=== PATIENT | male | born 1965 | race Caucasian/White ===

== ENCOUNTER 2019-11-29 10:04 | Emergency (ER) | payer OTHER, SELFPAY ==
[2019-11-29 10:12] VITALS: BP 149/74; PULSE 89; RESP 14; TEMP 36.3; O2SAT 98; BMI 33.1
--- NOTE | 2019-11-29 10:16 | DI.RAD.S_ITS ---
PROCEDURE: XR ANKLE RT MIN 3V INDICATIONS: rolled ankle TECHNIQUE: 3 views of the ankle were acquired. COMPARISON: None. FINDINGS: Bones: 3 mm osseous fragment is seen projecting adjacent to the to the lateral malleolus and lateral aspect of the talus. The exact donor site is unclear Tibiotalar degenerative spurring. Posterior calcaneal spurring. Diffuse hindfoot degenerative sclerosis and spurring Soft tissues: Lateral soft tissue swelling IMPRESSION: Suspect cortical fracture fragment projecting at the tip of the lateral malleolus although the exact donor site is unclear. Overlying lateral soft tissue swelling Chronic degenerative changes as above. Dictated by: Mike Cheney M.D. on 11/29/2019 at 10:37 Approved by: Mike Cheney M.D. on 11/29/2019 at 10:40
--- NOTE | 2019-11-29 11:43 | ED_ITS ---
HPI - Extremity Injury (Lower) <GAB Loo - Last Filed: 11/29/19 14:43> General Chief Complaint: Extremity Injury, Lower Stated Complaint: right ankle injury x1day Time Seen by Provider: 11/29/19 11:02 Source: patient Mode of arrival: Wheelchair Limitations: no limitations History of Present Illness HPI Narrative: 54-year-old male presents to the emergency department for right l ateral malleolus pain. He states he was hiking yesterday and rolled his right ankle inward. Patient reported significant pain, swelling, and hearing a pop. He was able to put weight on his ankle afterwards but reports the pain and swelling have been increasing over the past 24 hours. Patient denies any previous injury to the ankle other than a sprain approximately 10-20 years ago. Patient denies any other injuries such as knee pain, foot pain, head injury, or wrist injury. Patient denies any major medical issues, denies taking blood thinners. Related Data Allergies Allergy/AdvReac Type Severity Reaction Status Date / Time No Known Drug Allergies Allergy Verified 11/29/19 10:16 Review of Systems <GAB Loo - Last Filed: 11/29/19 14:43> Review of Systems Narrative: REVIEW OF SYSTEMS: GENERAL: Denies fever or chills. HENT: No head trauma. CARDIOVASCULAR: No chest pain. RESPIRATORY: No shortness of breath or cough. GASTROINTESTINAL: No nausea vomiting. GENITOURINARY: No flank pain. MUSCULOSKELETAL: Complains of right ankle pain, see HPI. INTEGUMENTARY: No rash, lesions, or pruritus. NEURO: No numbness, tingling. PSYCH: No behavior or mood changes. Patient History <GAB Loo - Last Filed: 11/29/19 14:43> Medical History No significant medical problems (Acute) Social History Smoking Status: Unknown if ever smoked Smoking Status: Unknown if ever smoked alcohol intake frequency: a few times a week Substance Use Type: does not use Exam <GAB Loo - Last Filed: 11/29/19 14:43> Initial Vital Signs Initial Vital Signs: Vital Signs Temperature 97.4 F L 11/29/19 10:12 Pulse Rate 89 11/29/19 10:12 Respiratory Rate 14 11/29/19 10:12 Blood Pressure 149/74 H 11/29/19 10:12 Pulse Oximetry 98 11/29/19 10:12 PHYSICAL EXAMINATION: GENERAL: Well groomed, alert, and cooperative. Answers questions promptly and appropriately. Vital signs noted. HENT: Normocephalic, atraumatic. EYES: Symmetrical, sclera white, no periorbital swelling. CARDIOVASCULAR: Regular rate. RESPIRATORY: Normal respiratory rate, trachea midline, airway patent. No stridor, nasal flaring or accessory muscle use. MUSCULOSKELETAL: Swelling and significant tenderness noted to posterior aspect of right lateral malleolus. Minor ecchymosis. No tenderness to 5th metatarsal or foot. No medial tenderness to malleolus. Normal gait and coordination. Equal tone and mass bilaterally. EXTREMITIES: CMS intact. No pedal edema. SKIN: Warm, dry, soft, appropriate color for ethnicity. No lesions, rashes, or wounds. NEURO: Alert and Oriented X 3. No sensory deficits. PSYCH: Appropriate affect and mood. <Valeria Márquez DO - Last Filed: 11/30/19 06:51> Initial Vital Signs Initial Vital Signs: Vital Signs Temperature 97.4 F L 11/29/19 10:12 Pulse Rate 89 11/29/19 10:12 Respiratory Rate 14 11/29/19 10:12 Blood Pressure 149/74 H 11/29/19 10:12 Pulse Oximetry 98 11/29/19 10:12 Course <GAB Loo - Last Filed: 11/29/19 14:43> Course Course Narrative: Patient was given Toradol in the emergency department to help with pain. Orders Ordered: Discontinued Medications Ketorolac Tromethamine (Toradol) 30 mg IM NOW ONE Stop: 11/29/19 11:24 Last Admin: 11/29/19 12:04 Dose: 30 mg Documented by: EVANGELISTA Vital Signs Vital signs: Vital Signs - 8 hr 11/29/19 10:12 11/29/19 12:50 Temperature 97.4 F L Pulse Rate 89 64 Respiratory Rate 14 18 Blood Pressure 149/74 H 112/80 Pulse Oximetry 98 97 <Valeria Márquez DO - Last Filed: 11/30/19 06:51> Orders Ordered: Discontinued Medications Ketorolac Tromethamine (Toradol) 30 mg IM NOW ONE Stop: 11/29/19 11:24 Last Admin: 11/29/19 12:04 Dose: 30 mg Documented by: EVANGELISTA Vital Signs Vital signs: Vital Signs - 8 hr 11/29/19 10:12 11/29/19 12:50 Temperature 97.4 F L Pulse Rate 89 64 Respiratory Rate 14 18 Blood Pressure 149/74 H 112/80 Pulse Oximetry 98 97 MDM - Extremity Injury (Lower) <GAB Loo - Last Filed: 11/29/19 14:43> Medical Records Attestation: I reviewed the patient's medical records. Lab Data Attestation: I reviewed the patient's lab results. Imaging Data Extremity x-ray #1: Radiologist's Impression: [address] [address] XRay Report Signed Patient: Carlos Porter [facility]#: [id number] : 1965Acct:[id number] Age/Sex: 54 / MDate of Service: 11/29/19 Loc: ED Accession Number: [id number] Procedure: XR ankle RT min 3V Ordering Provider: Valeria Márquez D.O. PROCEDURE: XR ANKLE RT MIN 3V INDICATIONS: rolled ankle TECHNIQUE: 3 views of the ankle were acquired. COMPARISON: None. FINDINGS: Bones: 3 mm osseous fragment is seen projecting adjacent to the to the lateral malleolus and lateral aspect of the talus. The exact donor site is unclear Tibiotalar degenerative spurring. Posterior calcaneal spurring. Diffuse hindfoot degenerative sclerosis and spurring Soft tissues: Lateral soft tissue swelling IMPRESSION: Suspect cortical fracture fragment projecting at the tip of the lateral malleolus although the exact donor site is unclear. Overlying lateral soft tissue swelling Chronic degenerative changes as above. Dictated by: Mike Cheney M.D. on 11/29/2019 at 10:37 Approved by: Mike Cheney M.D. on 11/29/2019 at 10:40 [facility] Narrative Medical decision making narrative: 54-year-old male presents emergency department for right lateral malleolar pain twisting his ankle while hiking yesterday. X-ray shows suspicious bone fragment from lateral malleolus, patient is tender in this area. Concern for possible fracture with ankle sprain. No pain with palpation of foot or other injuries noted such as knee pain or ecchymosis. Patient was placed in a boot, inform to be nonweightbearing until follow-up in the next 1-2 weeks. Patient was given crutches. Toradol was given for pain. Return precautions given for new or worsening symptoms. Patient agreed to plan of care verbalized understanding. Discharge Plan Departure Patient Disposition: Home Clinical Impression: Fracture of lateral malleolus Qualifiers: Encounter type: initial encounter Fracture type: closed Fracture alignment: nondisplaced Laterality: right Qualified Code(s): S82.64XA - Nondisplaced fracture of lateral malleolus of right fibula, initial encounter for closed fracture Discharge Date/Time: 11/29/19 12:51 Instructions: DI for Ankle Fracture Activity Restrictions/Additional Instructions: Thank you for entrusting me with your care today. As discussed, there is a possible fracture noted on your x-ray. We have given you a boot, please leave this in place as much as possible, you may remove it briefly to take a shower. Do not put any weight on your foot until you are evaluated by an orthopedic. I have referred you to an orthopedic below, please call her office to schedule an appointment today within the next 1-2 weeks. Return to the emergency department for any new or worsening symptoms such as severe pain, high fevers, chest pain, shortness of breath, or any other concerns. Referrals: Krystal Andrade PA-C [[employer]] - (Suspect cortical fracture fragment projecting from tip of lateral malleolus.) <Valeria Márquez DO - Last Filed: 11/30/19 06:51> Sign Out Provider Sign Out Attestation: I was immediately available in the department for consultation. Documentation has been reviewed. I agree with assessment and plan.
[2019-11-29] MEDS: KETOROLAC 60 MG/2 ML VIAL 30 MG IM (12:04)
[2019-11-29 12:50] VITALS: BP 112/80; PULSE 64; RESP 18; O2SAT 97
== END 2019-11-29 12:51 | disposition home or self-care (01) ==
PROVIDERS: Emergency Provider Nurse Practitioner
DX: S82.64XA Nondisplaced fracture of lateral malleolus of right fibula, initial encounter for closed fracture (principal)
CPT/HCPCS: 29580; 73610; 96372; 99283; J1885

== ENCOUNTER → 2023-12-23 13:35 | Outpatient (CLI) | payer BC, SELFPAY ==
[2023-12-23 14:41] LABS: Add Manual Diff / Slide Review NO; Basophils Absolute Auto 100 /uL (0-100); Basophils Percent Auto 0.4 % (0-2); Eosinophils Absolute Auto 200 /uL (0-450); Eosinophils Percent Auto 1.6 % (2-4); Hematocrit 27.1 % (41-53); Hemoglobin 8.9 g/dL (13.5-17.5); Lymphocytes Absolute Auto 700 /uL (1100-4500); Lymphocytes Percent Auto 4.6 % (25-40); Mean Corpuscular HGB Conc 32.8 % (30-36); Mean Corpuscular Hemoglobin 28.1 PG (26-34); Mean Corpuscular Volume 85.7 fL (80-100); Monocytes Absolute Auto 300 /uL (0-900); Monocytes Percent Auto 2.1 % (3-14); Neutrophils Absolute Auto 13300 /uL (1500-7000); Neutrophils Percent Auto 91.3 % (50-75); Platelet Count 378 X10^3/uL (150-400); Red Blood Cell Count 3.16 X10^6/uL (4.5-5.9); Red Cell Distribution Width 13.6 % (11.6-14.8); White Blood Cell Count 14.5 X10^3/uL (4.5-11.0)
[2023-12-23 14:44] LABS: Appearance Urine UA CLEAR; Bilirubin Urine UA NEGATIVE (NEGATIVE); Color Urine UA YELLOW; Glucose Urine UA TRACE g/dL (Negative); Ketones Urine UA NEGATIVE (NEGATIVE); Leukocyte Esterase Urine UA NEGATIVE (NEGATIVE); Nitrite Urine UA NEGATIVE (Negative); Occult Blood Urine UA 3+ (Negative); Protein Urine UA 3+ (Negative); Specific Gravity Urine UA 1.015 (1.000-1.035); Urobilinogen Urine UA 0.2 E.U./dL (0.2)
[2023-12-23 14:59] LABS: Bacteria Urine None Seen; Culture Indicated Urine Cult Not Indicated; RBC Urine 10-30/HPF (0-5/HPF); Squamous Epithelial Cell Urine None Seen (0-5/HPF); Urine Volume 10mL (spun); WBC Urine 1-5/HPF (0-5/HPF)
[2023-12-23 15:08] LABS: Alanine Aminotransferase 13 IU/L (<50); Albumin 4.4 g/dL (3.5-5.0); Albumin Globulin Ratio 1.3 (1.0-2.8); Alkaline Phosphatase 62 U/L (38-126); Aspartate Aminotransferase 12 IU/L (17-59); Bilirubin Total 0.4 mg/dL (0.2-1.3); Blood Urea Nitrogen 83 mg/dL (9-20); C-Reactive Protein Quant 3.9 mg/dL (<1.0); Calcium 8.7 mg/dL (8.4-10.2); Carbon Dioxide 16 mmol/L (22-32); Chloride 109 mmol/L (98-107); Globulin 3.5 g/dL (1.7-4.1); Glucose 135 mg/dL (70-100); HEMOLYSIS < 15 (0-50); Sodium 138 mmol/L (137-145); Total Protein 7.9 g/dL (6.3-8.2)
[2023-12-23 15:13] LABS: Erythrocyte Sedimentation Rate > 140 MM/HR (0-15)
[2023-12-23 15:16] LABS: BUN Creatinine Ratio 9.8 (6-22); Estimated Glomerular Filt Rate 7 mL/min (>60)
[2023-12-23 15:17] LABS: Potassium 6.2 mmol/L (3.4-5.1)
== END ==
PROVIDERS: Referring Provider Dermatology; Visit Provider Dermatology
DX: R21 Rash and other nonspecific skin eruption (principal); L57.8 Other skin changes due to chronic exposure to nonionizing radiation; L57.3 Poikiloderma of Civatte; X32.XXXA Exposure to sunlight, initial encounter
CPT/HCPCS: 36415; 80053; 81001; 85025; 85651; 86140

== ENCOUNTER 2023-12-23 17:00 | Emergency (ER) | payer BC, SELFPAY ==
[2023-12-23] VITALS (34 sets, daily range): BP systolic 142–172; BP diastolic 68–93; PULSE 75–125; RESP 16–27; TEMP 36.6; O2SAT 94–99; BMI 33.1
--- NOTE | 2023-12-23 17:14 | EKG_ITS ---
[address] [address] Test Date: 2023-12-23 Pat Name: Carlos Porter Department: [facility] Room: Gender: Male [employer] Spr[employer]: MARIAM : 1965 Requested By: Order Number: [id number] Reading MD: Jamari Reece Measurements Intervals [place] Rate: 74 P: -9 NE: 162 QRS: 26 QRSD: 92 T: 42 QT: 360 QTc: 399 Interpretive Statements Normal sinus rhythm with sinus arrhythmia Electronically Signed On 12-27-2023 8:40:11 PDT by Jamari Reece
[2023-12-23 17:33] LABS: Add Manual Diff / Slide Review NO; Basophils Absolute Auto 100 /uL (0-100); Basophils Percent Auto 0.5 % (0-2); Eosinophils Absolute Auto 0 /uL (0-450); Eosinophils Percent Auto 0.1 % (2-4); Hematocrit 26.9 % (41-53); Hemoglobin 8.8 g/dL (13.5-17.5); Lymphocytes Absolute Auto 500 /uL (1100-4500); Lymphocytes Percent Auto 3.1 % (25-40); Mean Corpuscular HGB Conc 32.7 % (30-36); Mean Corpuscular Hemoglobin 27.9 PG (26-34); Mean Corpuscular Volume 85.2 fL (80-100); Monocytes Absolute Auto 100 /uL (0-900); Monocytes Percent Auto 0.8 % (3-14); Neutrophils Absolute Auto 14800 /uL (1500-7000); Neutrophils Percent Auto 95.5 % (50-75); Platelet Count 375 X10^3/uL (150-400); Red Blood Cell Count 3.16 X10^6/uL (4.5-5.9); Red Cell Distribution Width 13.5 % (11.6-14.8); White Blood Cell Count 15.5 X10^3/uL (4.5-11.0)
[2023-12-23 17:41] LABS: Base Excess VBG -9.2 mmol/L (0-4); HCO3 VBG 16 mmol/L (24-28); Oxygen Saturation VBG 68 % (70-75); PCO2 VBG 33.2 mmHg (45-50); PO2 VBG 39 mmHg (35-45); Total CO2 VBG 16 mmol/L (24-29)
[2023-12-23 17:42] LABS: Fractionated Inspired Oxygen 21
[2023-12-23 17:42] LABS: Lactate (Lactic Acid) 0.7 mmol/L (0.7-2.1)
[2023-12-23 17:43] LABS: Alanine Aminotransferase 12 IU/L (<50); Albumin 4.5 g/dL (3.5-5.0); Albumin Globulin Ratio 1.3 (1.0-2.8); Alkaline Phosphatase 56 U/L (38-126); Aspartate Aminotransferase 13 IU/L (17-59); Bilirubin Total 0.4 mg/dL (0.2-1.3); Blood Urea Nitrogen 84 mg/dL (9-20); Calcium 8.6 mg/dL (8.4-10.2); Carbon Dioxide 14 mmol/L (22-32); Chloride 108 mmol/L (98-107); Estimated Glomerular Filt Rate 7 mL/min (>60); Globulin 3.6 g/dL (1.7-4.1); Glucose 158 mg/dL (70-100); HEMOLYSIS < 15 (0-50); Magnesium 2.2 mg/dL (1.6-2.3); Phosphorous 5.6 mg/dL (2.5-4.5); Sodium 135 mmol/L (137-145); Total Protein 8.1 g/dL (6.3-8.2)
[2023-12-23 17:45] LABS: Potassium 7.7 mmol/L (3.4-5.1)
[2023-12-23] MEDS: SODIUM POLYSTYRENE SULFON/SORB 15 GM/60 ML CUP 30 GM PO (17:58)
[2023-12-23] MEDS: CALCIUM CHLORIDE 1,000 MG/10 ML SYRINGE 1000 MG IV (17:58)
[2023-12-23] MEDS: INSULIN REGULAR 100 UNIT/ML 3 ML VIAL IV ×2 (17:59→21:46)
--- NOTE | 2023-12-23 18:02 | ED_ITS ---
HPI - Recheck/Abnormal Lab/Rx <Jenny Ng MD - Last Filed: 12/31/23 00:04> General Chief Complaint: Recheck/Abnormal Lab/Rx Stated Complaint: abnormal labs, sent by [facility] Time Seen by Provider: 12/23/23 17:14 Source: patient Mode of arrival: Ambulatory History of Present Illness HPI narrative: 58-year-old male with history of IgA nephropathy, rheumatoid arthritis on immunomodulators presents for abnormal lab results. Patient normally lives in [facility], however he and his have a summer home in [place]. Patient was seeing the laundry tub maker for a rash that he had. The laundry tub maker ordered laboratory work. He received a call this afternoon stating that he had abnormal labs and he needed to go to the emergency department. Patient sees a strategy planning consultant in [place], however he doess not know his baseline creatinine. He states that his strategy planning consultant last told him in July of this year that they did not need to consider dialysis yet. Related Data Previous Rx's Medication Instructions Recorded prednisone 50 mg tablet 50 mg PO DAILY #5 tabs 12/06/23 Allergies Allergy/AdvReac Type Severity Reaction Status Date / Time No Known Drug Allergies Allergy Verified 12/23/23 17:07 Review of Systems <Ashu Brito DO - Last Filed: 12/24/23 02:15> Review of Systems ROS Unobtainable: All systems reviewed & are unremarkable except as noted in HPI and below Patient History <Jenny Ng MD - Last Filed: 12/31/23 00:04> Medical History (Updated 12/24/23 @ 02:09 by Ashu Brito DO) Rheumatoid arthritis IgA nephropathy Social History Smoking Status: Unknown if ever smoked Smoking Status: Unknown if ever smoked alcohol intake frequency: a few times a week Substance Use Type: does not use Exam <Jenny Ng MD - Last Filed: 12/31/23 00:04> Initial Vital Signs Initial Vital Signs: Vital Signs Temperature 98 F 12/23/23 17:04 Pulse Rate 88 12/23/23 17:04 Respiratory Rate 18 12/23/23 17:04 Blood Pressure 149/77 H 12/23/23 17:04 Pulse Oximetry 98 12/23/23 17:04 Oxygen Delivery Method Room Air 12/23/23 17:04 Const: Awake, alert, no acute distress, nontoxic appearing Cardiac: regular rate, regular rhythm RESP: unlabored, clear bilaterally, no wheezing GI: Soft, nontender, nondistended, no rebound, no guarding MSK: Atraumatic, full range of motion, pulses equal Skin: Warm, Dry, intact, no rashes Neuro: AO x3, CN II-XII grossly intact, moves all extremities <Ashu Brito DO - Last Filed: 12/24/23 02:15> Initial Vital Signs Initial Vital Signs: Vital Signs Temperature 98 F 12/23/23 17:04 Pulse Rate 88 12/23/23 17:04 Respiratory Rate 18 12/23/23 17:04 Blood Pressure 149/77 H 12/23/23 17:04 Pulse Oximetry 98 12/23/23 17:04 Oxygen Delivery Method Room Air 12/23/23 17:04 Course <Jenny Ng MD - Last Filed: 12/31/23 00:04> Orders Ordered: Discontinued Medications Albuterol (Albuterol 2.5 Mg/3 Ml Neb (Adult)) 2.5 mg INH [id number] PRN PRN Reason: Shortness Of Breath Last Admin: 12/23/23 18:06 Dose: 2.5 mg Documented By: SAT Albuterol (Albuterol 2.5 Mg/3 Ml Neb (Adult)) 5 mg INH NOW ONE Stop: 12/23/23 21:34 Last Admin: 12/23/23 21:50 Dose: 5 mg Documented By: MR Albuterol/Ipratropium (Albuterol/Ipratropium 3 Ml Ampul) 9 ml INH NOW ONE Stop: 12/23/23 17:46 Last Admin: 12/23/23 18:03 Dose: Not Given Documented By: SAT Calcium Chloride (Calcium Chloride 1,000 Mg/10 Ml Syringe) 1,000 mg IV NOW ONE Stop: 12/23/23 17:46 Last Admin: 12/23/23 17:58 Dose: 1,000 mg Documented By: ANISH Sodium Bicarbonate 150 meq/ (Sterile Water) 1,150 mls @ 150 mls/hr IV CONT OFE Last Admin: 12/23/23 21:58 Dose: Not Given Documented By: ANISH Sodium Bicarbonate 150 meq/ (Dextrose) 1,150 mls @ 150 mls/hr IV CONT OFE Last Infusion: 12/24/23 03:09 Dose: Infused Documented By: Admin: 12/23/23 19:33 Dose: 150 mls/hr Documented By: ANISH Insulin Human Regular (Insulin Regular 100 Unit/Ml 3 Ml Vial) 5 unit IV NOW ONE Stop: 12/23/23 17:46 Last Admin: 12/23/23 17:59 Dose: 5 unit Documented By: ANISH Co-signed By: JUSTIN Insulin Human Regular (Insulin Regular 100 Unit/Ml 3 Ml Vial) 5 unit IV NOW ONE Stop: 12/23/23 21:34 Last Admin: 12/23/23 21:46 Dose: 5 unit Documented By: ANISH Co-signed By: BELLA Sodium Polystyrene Sulfonate (Sodium Polystyrene Sulfon/Sorb 15 Gm/60 Ml Cup) 30 gm PO NOW ONE Stop: 12/23/23 17:46 Last Admin: 12/23/23 17:58 Dose: 30 gm Documented By: ANISH Vital Signs Vital signs: Vital Signs - 8 hr 12/23/23 18:15 12/23/23 18:15 12/23/23 18:22 Pulse Rate 84 85 Respiratory Rate 24 16 Blood Pressure 163/93 H Pulse Oximetry 99 98 Oxygen Delivery Method Room Air 12/23/23 18:30 12/23/23 18:30 12/23/23 18:45 Pulse Rate 93 H Respiratory Rate 25 H Blood Pressure 168/83 H 172/85 H Pulse Oximetry 98 Oxygen Delivery Method 12/23/23 18:45 12/23/23 19:00 12/23/23 19:00 Pulse Rate 104 H 110 H Respiratory Rate 21 27 H Blood Pressure 167/90 H Pulse Oximetry 97 96 Oxygen Delivery Method 12/23/23 19:15 12/23/23 19:15 12/23/23 19:33 Pulse Rate 113 H 120 H Respiratory Rate 26 H Blood Pressure 168/90 H Pulse Oximetry 97 99 Oxygen Delivery Method 12/23/23 19:34 12/23/23 19:34 12/23/23 19:45 Pulse Rate 116 H Respiratory Rate 19 Blood Pressure 167/79 H 162/72 H Pulse Oximetry 99 Oxygen Delivery Method 12/23/23 19:45 12/23/23 20:00 12/23/23 20:00 Pulse Rate 115 H 114 H Respiratory Rate 25 H 23 Blood Pressure 165/79 H Pulse Oximetry 94 95 Oxygen Delivery Method 12/23/23 20:15 12/23/23 20:15 12/23/23 20:30 Pulse Rate 116 H 113 H Respiratory Rate 21 18 Blood Pressure 161/80 H Pulse Oximetry 95 96 Oxygen Delivery Method 12/23/23 20:30 12/23/23 20:45 12/23/23 20:45 Pulse Rate 113 H Respiratory Rate 19 Blood Pressure 154/81 H 150/88 H Pulse Oximetry 95 Oxygen Delivery Method 12/23/23 21:00 12/23/23 21:00 12/23/23 21:10 Pulse Rate 113 H 112 H Respiratory Rate 18 24 Blood Pressure 161/88 H 161/88 H Pulse Oximetry 96 96 Oxygen Delivery Method 12/23/23 21:15 12/23/23 21:15 12/23/23 21:30 Pulse Rate 110 H 111 H Respiratory Rate 20 17 Blood Pressure 148/81 H Pulse Oximetry 96 95 Oxygen Delivery Method 12/23/23 21:30 12/23/23 21:45 12/23/23 21:45 Pulse Rate 109 H Respiratory Rate 20 Blood Pressure 157/83 H 142/84 H Pulse Oximetry 95 Oxygen Delivery Method 12/23/23 22:00 12/23/23 22:00 12/23/23 22:15 Pulse Rate 113 H 122 H Respiratory Rate 22 20 Blood Pressure 148/84 H Pulse Oximetry 99 96 Oxygen Delivery Method 12/23/23 22:15 12/23/23 22:22 12/23/23 22:22 Pulse Rate 123 H Respiratory Rate 18 Blood Pressure 152/72 H 148/71 H Pulse Oximetry 98 Oxygen Delivery Method 12/23/23 22:30 12/23/23 22:30 12/23/23 22:45 Pulse Rate 125 H 124 H Respiratory Rate 22 22 Blood Pressure 149/68 H Pulse Oximetry 96 94 Oxygen Delivery Method 12/23/23 22:45 12/23/23 23:00 12/23/23 23:00 Pulse Rate 121 H Respiratory Rate 20 Blood Pressure 154/75 H 161/77 H Pulse Oximetry 94 Oxygen Delivery Method 12/23/23 23:15 12/23/23 23:15 12/23/23 23:30 Pulse Rate 122 H 119 H Respiratory Rate 22 22 Blood Pressure 145/68 H Pulse Oximetry 96 97 Oxygen Delivery Method Room Air 12/23/23 23:30 12/23/23 23:48 12/23/23 23:48 Pulse Rate 121 H Respiratory Rate 27 H Blood Pressure 142/71 H 169/79 H Pulse Oximetry 98 Oxygen Delivery Method 12/24/23 00:00 12/24/23 00:00 12/24/23 00:30 Pulse Rate 114 H 112 H Respiratory Rate 17 18 Blood Pressure 141/59 H Pulse Oximetry 97 97 Oxygen Delivery Method Room Air 12/24/23 00:30 12/24/23 01:00 12/24/23 01:00 Pulse Rate 110 H Respiratory Rate 17 Blood Pressure 126/67 120/66 Pulse Oximetry 96 Oxygen Delivery Method 12/24/23 01:30 12/24/23 01:30 Pulse Rate 113 H Respiratory Rate 24 Blood Pressure 154/74 H Pulse Oximetry 98 Oxygen Delivery Method Room Air <Ashu Brito DO - Last Filed: 12/24/23 02:15> Orders Ordered: Discontinued Medications Albuterol (Albuterol 2.5 Mg/3 Ml Neb (Adult)) 2.5 mg INH [id number] PRN PRN Reason: Shortness Of Breath Last Admin: 12/23/23 18:06 Dose: 2.5 mg Documented By: SAT Albuterol (Albuterol 2.5 Mg/3 Ml Neb (Adult)) 5 mg INH NOW ONE Stop: 12/23/23 21:34 Last Admin: 12/23/23 21:50 Dose: 5 mg Documented By: MR Albuterol/Ipratropium (Albuterol/Ipratropium 3 Ml Ampul) 9 ml INH NOW ONE Stop: 12/23/23 17:46 Last Admin: 12/23/23 18:03 Dose: Not Given Documented By: SAT Calcium Chloride (Calcium Chloride 1,000 Mg/10 Ml Syringe) 1,000 mg IV NOW ONE Stop: 12/23/23 17:46 Last Admin: 12/23/23 17:58 Dose: 1,000 mg Documented By: ANISH Sodium Bicarbonate 150 meq/ (Sterile Water) 1,150 mls @ 150 mls/hr IV CONT OFE Last Admin: 12/23/23 21:58 Dose: Not Given Documented By: ANISH Sodium Bicarbonate 150 meq/ (Dextrose) 1,150 mls @ 150 mls/hr IV CONT OFE Last Infusion: 12/24/23 03:09 Dose: Infused Documented By: Admin: 12/23/23 19:33 Dose: 150 mls/hr Documented By: ANISH Insulin Human Regular (Insulin Regular 100 Unit/Ml 3 Ml Vial) 5 unit IV NOW ONE Stop: 12/23/23 17:46 Last Admin: 12/23/23 17:59 Dose: 5 unit Documented By: ANISH Co-signed By: JUSTIN Insulin Human Regular (Insulin Regular 100 Unit/Ml 3 Ml Vial) 5 unit IV NOW ONE Stop: 12/23/23 21:34 Last Admin: 12/23/23 21:46 Dose: 5 unit Documented By: ANISH Co-signed By: BELLA Sodium Polystyrene Sulfonate (Sodium Polystyrene Sulfon/Sorb 15 Gm/60 Ml Cup) 30 gm PO NOW ONE Stop: 12/23/23 17:46 Last Admin: 12/23/23 17:58 Dose: 30 gm Documented By: ANISH Vital Signs Vital signs: Vital Signs - 8 hr 12/23/23 18:15 12/23/23 18:15 12/23/23 18:22 Pulse Rate 84 85 Respiratory Rate 24 16 Blood Pressure 163/93 H Pulse Oximetry 99 98 Oxygen Delivery Method Room Air 12/23/23 18:30 12/23/23 18:30 12/23/23 18:45 Pulse Rate 93 H Respiratory Rate 25 H Blood Pressure 168/83 H 172/85 H Pulse Oximetry 98 Oxygen Delivery Method 12/23/23 18:45 12/23/23 19:00 12/23/23 19:00 Pulse Rate 104 H 110 H Respiratory Rate 21 27 H Blood Pressure 167/90 H Pulse Oximetry 97 96 Oxygen Delivery Method 12/23/23 19:15 12/23/23 19:15 12/23/23 19:33 Pulse Rate 113 H 120 H Respiratory Rate 26 H Blood Pressure 168/90 H Pulse Oximetry 97 99 Oxygen Delivery Method 12/23/23 19:34 12/23/23 19:34 12/23/23 19:45 Pulse Rate 116 H Respiratory Rate 19 Blood Pressure 167/79 H 162/72 H Pulse Oximetry 99 Oxygen Delivery Method 12/23/23 19:45 12/23/23 20:00 12/23/23 20:00 Pulse Rate 115 H 114 H Respiratory Rate 25 H 23 Blood Pressure 165/79 H Pulse Oximetry 94 95 Oxygen Delivery Method 12/23/23 20:15 12/23/23 20:15 12/23/23 20:30 Pulse Rate 116 H 113 H Respiratory Rate 21 18 Blood Pressure 161/80 H Pulse Oximetry 95 96 Oxygen Delivery Method 12/23/23 20:30 12/23/23 20:45 12/23/23 20:45 Pulse Rate 113 H Respiratory Rate 19 Blood Pressure 154/81 H 150/88 H Pulse Oximetry 95 Oxygen Delivery Method 12/23/23 21:00 12/23/23 21:00 12/23/23 21:10 Pulse Rate 113 H 112 H Respiratory Rate 18 24 Blood Pressure 161/88 H 161/88 H Pulse Oximetry 96 96 Oxygen Delivery Method 12/23/23 21:15 12/23/23 21:15 12/23/23 21:30 Pulse Rate 110 H 111 H Respiratory Rate 20 17 Blood Pressure 148/81 H Pulse Oximetry 96 95 Oxygen Delivery Method 12/23/23 21:30 12/23/23 21:45 12/23/23 21:45 Pulse Rate 109 H Respiratory Rate 20 Blood Pressure 157/83 H 142/84 H Pulse Oximetry 95 Oxygen Delivery Method 12/23/23 22:00 12/23/23 22:00 12/23/23 22:15 Pulse Rate 113 H 122 H Respiratory Rate 22 20 Blood Pressure 148/84 H Pulse Oximetry 99 96 Oxygen Delivery Method 12/23/23 22:15 12/23/23 22:22 12/23/23 22:22 Pulse Rate 123 H Respiratory Rate 18 Blood Pressure 152/72 H 148/71 H Pulse Oximetry 98 Oxygen Delivery Method 12/23/23 22:30 12/23/23 22:30 12/23/23 22:45 Pulse Rate 125 H 124 H Respiratory Rate 22 22 Blood Pressure 149/68 H Pulse Oximetry 96 94 Oxygen Delivery Method 12/23/23 22:45 12/23/23 23:00 12/23/23 23:00 Pulse Rate 121 H Respiratory Rate 20 Blood Pressure 154/75 H 161/77 H Pulse Oximetry 94 Oxygen Delivery Method 12/23/23 23:15 12/23/23 23:15 12/23/23 23:30 Pulse Rate 122 H 119 H Respiratory Rate 22 22 Blood Pressure 145/68 H Pulse Oximetry 96 97 Oxygen Delivery Method Room Air 12/23/23 23:30 12/23/23 23:48 12/23/23 23:48 Pulse Rate 121 H Respiratory Rate 27 H Blood Pressure 142/71 H 169/79 H Pulse Oximetry 98 Oxygen Delivery Method 12/24/23 00:00 12/24/23 00:00 12/24/23 00:30 Pulse Rate 114 H 112 H Respiratory Rate 17 18 Blood Pressure 141/59 H Pulse Oximetry 97 97 Oxygen Delivery Method Room Air 12/24/23 00:30 12/24/23 01:00 12/24/23 01:00 Pulse Rate 110 H Respiratory Rate 17 Blood Pressure 126/67 120/66 Pulse Oximetry 96 Oxygen Delivery Method 12/24/23 01:30 12/24/23 01:30 Pulse Rate 113 H Respiratory Rate 24 Blood Pressure 154/74 H Pulse Oximetry 98 Oxygen Delivery Method Room Air MDM - Recheck/Abnormal Lab/Rx <Jenny Ng MD - Last Filed: 12/31/23 00:04> Differential Diagnosis Differential diagnosis: Likely other (ALLY, acute kidney failure, hyperkalemia) Lab Data 12/23/23 17:20 12/24/23 01:25 Labs: Lab Results 12/23/23 12/23/23 12/23/23 Range/Units 17:20 17:23 19:30 WBC 15.5 H (4.5-11.0) X10^3/uL RBC 3.16 L (4.5-5.9) X10^6/uL Hgb 8.8 L (13.5-17.5) g/dL Hct 26.9 L (41-53) % MCV 85.2 (80-100) fL MCH 27.9 (26-34) PG MCHC 32.7 (30-36) % RDW 13.5 (11.6-14.8) % Plt Count 375 (150-400) X10^3/uL Neut % (Auto) 95.5 H (50-75) % Lymph % (Auto) 3.1 L (25-40) % [place] % (Auto) 0.8 L (3-14) % Eos % (Auto) 0.1 L (2-4) % Baso % (Auto) 0.5 (0-2) % Neut # (Auto) 59435 H (9181-2331) /uL Lymph # (Auto) 500 L (4993-5447) /uL [place] # (Auto) 100 (0-900) /uL Eos # (Auto) 0 (0-450) /uL Baso # (Auto) 100 (0-100) /uL VBG pH 7.30 L (7.33-7.43) VBG pCO2 33.2 L (45-50) mmHg VBG pO2 39 (35-45) mmHg VBG HCO3 16 L (24-28) mmol/L VBG Total CO2 16 L (24-29) mmol/L VBG O2 Saturation 68 L (70-75) % VBG Base Excess -9.2 L (0-4) mmol/L FiO2 21 Sodium 135 L (137-145) mmol/L Potassium 7.7 H* D (3.4-5.1) mmol/L Chloride 108 H (98-107) mmol/L Carbon Dioxide 14 L (22-32) mmol/L BUN 84 H (9-20) mg/dL Creatinine 8.42 H* (0.66-1.25) mg/dL Estimated GFR 7 L (>60) mL/min BUN/Creatinine Ratio 10.0 (6-22) Glucose 158 H (70-100) mg/dL Lactate 0.7 (0.7-2.1) mmol/L Calcium 8.6 (8.4-10.2) mg/dL Phosphorus 5.6 H (2.5-4.5) mg/dL Magnesium 2.2 (1.6-2.3) mg/dL Total Bilirubin 0.4 (0.2-1.3) mg/dL AST 13 L (17-59) IU/L ALT 12 (<50) IU/L Alkaline Phosphatase 56 (38-126) U/L Total Protein 8.1 (6.3-8.2) g/dL Albumin 4.5 (3.5-5.0) g/dL Globulin 3.6 (1.7-4.1) g/dL Albumin/Globulin Ratio 1.3 (1.0-2.8) Urine Color Yellow Urine Appearance Clear Urine pH 5.5 (4.5-8.0) Ur Specific [place] 1.020 (1.000-1.035) Urine Protein 2+ H (Negative) Urine Glucose (UA) Trace H (Negative) g/dL Urine Ketones Negative (NEGATIVE) Urine Occult Blood 3+ H (Negative) Urine Nitrate Negative (Negative) Urine Bilirubin Negative (NEGATIVE) Urine Urobilinogen 0.2 (0.2) E.U./dL Ur Leukocyte Esterase Negative (NEGATIVE) Urine RBC 10-30/hpf H (0-5/HPF) Urine WBC 0-1/hpf (0-5/HPF) Ur Squamous Epith Cells None seen (0-5/HPF) Urine Bacteria Few (2-10) H (None) Urine Mucus 1+ H (Negative) Urine Yeast 0-1/hpf (None) Ur Culture Indicated? Cult not indicated Vol Urine Centrifuged 10ml (spun) Ur Random Sodium 35 (30-90) mmol/L Urine Creatinine 82.41 mg/dL 12/23/23 12/24/23 Range/Units 19:56 01:25 WBC (4.5-11.0) X10^3/uL RBC (4.5-5.9) X10^6/uL Hgb (13.5-17.5) g/dL Hct (41-53) % MCV (80-100) fL MCH (26-34) PG MCHC (30-36) % RDW (11.6-14.8) % Plt Count (150-400) X10^3/uL Neut % (Auto) (50-75) % Lymph % (Auto) (25-40) % [place] % (Auto) (3-14) % Eos % (Auto) (2-4) % Baso % (Auto) (0-2) % Neut # (Auto) (7174-8673) /uL Lymph # (Auto) (5446-6485) /uL [place] # (Auto) (0-900) /uL Eos # (Auto) (0-450) /uL Baso # (Auto) (0-100) /uL VBG pH (7.33-7.43) VBG pCO2 (45-50) mmHg VBG pO2 (35-45) mmHg VBG HCO3 (24-28) mmol/L VBG Total CO2 (24-29) mmol/L VBG O2 Saturation (70-75) % VBG Base Excess (0-4) mmol/L FiO2 Sodium 135 L 136 L (137-145) mmol/L Potassium 6.0 H D 5.2 H (3.4-5.1) mmol/L Chloride 109 H 106 (98-107) mmol/L Carbon Dioxide 12 L 15 L (22-32) mmol/L BUN 87 H 93 H (9-20) mg/dL Creatinine 8.02 H* 8.28 H* (0.66-1.25) mg/dL Estimated GFR 7 L 7 L (>60) mL/min BUN/Creatinine Ratio 10.8 11.2 (6-22) Glucose 224 H 250 H (70-100) mg/dL Lactate (0.7-2.1) mmol/L Calcium 9.1 8.7 (8.4-10.2) mg/dL Phosphorus (2.5-4.5) mg/dL Magnesium (1.6-2.3) mg/dL Total Bilirubin (0.2-1.3) mg/dL AST (17-59) IU/L ALT (<50) IU/L Alkaline Phosphatase (38-126) U/L Total Protein (6.3-8.2) g/dL Albumin (3.5-5.0) g/dL Globulin (1.7-4.1) g/dL Albumin/Globulin Ratio (1.0-2.8) Urine Color Urine Appearance Urine pH (4.5-8.0) Ur Specific [place] (1.000-1.035) Urine Protein (Negative) Urine Glucose (UA) (Negative) g/dL Urine Ketones (NEGATIVE) Urine Occult Blood (Negative) Urine Nitrate (Negative) Urine Bilirubin (NEGATIVE) Urine Urobilinogen (0.2) E.U./dL Ur Leukocyte Esterase (NEGATIVE) Urine RBC (0-5/HPF) Urine WBC (0-5/HPF) Ur Squamous Epith Cells (0-5/HPF) Urine Bacteria (None) Urine Mucus (Negative) Urine Yeast (None) Ur Culture Indicated? Vol Urine Centrifuged Ur Random Sodium (30-90) mmol/L Urine Creatinine mg/dL Point of Care Testing Glucose POC 262 MDM Narrative Medical decision making narrative: patient presenting for abnormal labs incidentally found while undergoing lab work for Dermatology condition. Patient was not know his baseline hemoglobin, but does have known IgA nephropathy and is followed by Nephrology, however his normal doctor is in [place]. EKG shows slight peaked T-waves. repeat laboratory work shows even worsening of hyperkalemia with potassium 7.7. Albuterol, insulin, Kayexalate, calcium chloride ordered for stabilization and shift of potassium. Patient and significant other at bedside informed of abnormal labs as well as likely necessity of transfer for dialysis. Care of patient is signed over to Dr. Brito at 1800 <Ashu Brito DO - Last Filed: 12/24/23 02:15> Lab Data Attestation: I reviewed the patient's lab results. Labs: Lab Results 12/23/23 12/23/23 12/23/23 Range/Units 17:20 17:23 19:30 WBC 15.5 H (4.5-11.0) X10^3/uL RBC 3.16 L (4.5-5.9) X10^6/uL Hgb 8.8 L (13.5-17.5) g/dL Hct 26.9 L (41-53) % MCV 85.2 (80-100) fL MCH 27.9 (26-34) PG MCHC 32.7 (30-36) % RDW 13.5 (11.6-14.8) % Plt Count 375 (150-400) X10^3/uL Neut % (Auto) 95.5 H (50-75) % Lymph % (Auto) 3.1 L (25-40) % [place] % (Auto) 0.8 L (3-14) % Eos % (Auto) 0.1 L (2-4) % Baso % (Auto) 0.5 (0-2) % Neut # (Auto) 45785 H (3924-3778) /uL Lymph # (Auto) 500 L (6366-9113) /uL [place] # (Auto) 100 (0-900) /uL Eos # (Auto) 0 (0-450) /uL Baso # (Auto) 100 (0-100) /uL VBG pH 7.30 L (7.33-7.43) VBG pCO2 33.2 L (45-50) mmHg VBG pO2 39 (35-45) mmHg VBG HCO3 16 L (24-28) mmol/L VBG Total CO2 16 L (24-29) mmol/L VBG O2 Saturation 68 L (70-75) % VBG Base Excess -9.2 L (0-4) mmol/L FiO2 21 Sodium 135 L (137-145) mmol/L Potassium 7.7 H* D (3.4-5.1) mmol/L Chloride 108 H (98-107) mmol/L Carbon Dioxide 14 L (22-32) mmol/L BUN 84 H (9-20) mg/dL Creatinine 8.42 H* (0.66-1.25) mg/dL Estimated GFR 7 L (>60) mL/min BUN/Creatinine Ratio 10.0 (6-22) Glucose 158 H (70-100) mg/dL Lactate 0.7 (0.7-2.1) mmol/L Calcium 8.6 (8.4-10.2) mg/dL Phosphorus 5.6 H (2.5-4.5) mg/dL Magnesium 2.2 (1.6-2.3) mg/dL Total Bilirubin 0.4 (0.2-1.3) mg/dL AST 13 L (17-59) IU/L ALT 12 (<50) IU/L Alkaline Phosphatase 56 (38-126) U/L Total Protein 8.1 (6.3-8.2) g/dL Albumin 4.5 (3.5-5.0) g/dL Globulin 3.6 (1.7-4.1) g/dL Albumin/Globulin Ratio 1.3 (1.0-2.8) Urine Color Yellow Urine Appearance Clear Urine pH 5.5 (4.5-8.0) Ur Specific [place] 1.020 (1.000-1.035) Urine Protein 2+ H (Negative) Urine Glucose (UA) Trace H (Negative) g/dL Urine Ketones Negative (NEGATIVE) Urine Occult Blood 3+ H (Negative) Urine Nitrate Negative (Negative) Urine Bilirubin Negative (NEGATIVE) Urine Urobilinogen 0.2 (0.2) E.U./dL Ur Leukocyte Esterase Negative (NEGATIVE) Urine RBC 10-30/hpf H (0-5/HPF) Urine WBC 0-1/hpf (0-5/HPF) Ur Squamous Epith Cells None seen (0-5/HPF) Urine Bacteria Few (2-10) H (None) Urine Mucus 1+ H (Negative) Urine Yeast 0-1/hpf (None) Ur Culture Indicated? Cult not indicated Vol Urine Centrifuged 10ml (spun) Ur Random Sodium 35 (30-90) mmol/L Urine Creatinine 82.41 mg/dL 12/23/23 12/24/23 Range/Units 19:56 01:25 WBC (4.5-11.0) X10^3/uL RBC (4.5-5.9) X10^6/uL Hgb (13.5-17.5) g/dL Hct (41-53) % MCV (80-100) fL MCH (26-34) PG MCHC (30-36) % RDW (11.6-14.8) % Plt Count (150-400) X10^3/uL Neut % (Auto) (50-75) % Lymph % (Auto) (25-40) % [place] % (Auto) (3-14) % Eos % (Auto) (2-4) % Baso % (Auto) (0-2) % Neut # (Auto) (2248-6163) /uL Lymph # (Auto) (6717-4070) /uL [place] # (Auto) (0-900) /uL Eos # (Auto) (0-450) /uL Baso # (Auto) (0-100) /uL VBG pH (7.33-7.43) VBG pCO2 (45-50) mmHg VBG pO2 (35-45) mmHg VBG HCO3 (24-28) mmol/L VBG Total CO2 (24-29) mmol/L VBG O2 Saturation (70-75) % VBG Base Excess (0-4) mmol/L FiO2 Sodium 135 L 136 L (137-145) mmol/L Potassium 6.0 H D 5.2 H (3.4-5.1) mmol/L Chloride 109 H 106 (98-107) mmol/L Carbon Dioxide 12 L 15 L (22-32) mmol/L BUN 87 H 93 H (9-20) mg/dL Creatinine 8.02 H* 8.28 H* (0.66-1.25) mg/dL Estimated GFR 7 L 7 L (>60) mL/min BUN/Creatinine Ratio 10.8 11.2 (6-22) Glucose 224 H 250 H (70-100) mg/dL Lactate (0.7-2.1) mmol/L Calcium 9.1 8.7 (8.4-10.2) mg/dL Phosphorus (2.5-4.5) mg/dL Magnesium (1.6-2.3) mg/dL Total Bilirubin (0.2-1.3) mg/dL AST (17-59) IU/L ALT (<50) IU/L Alkaline Phosphatase (38-126) U/L Total Protein (6.3-8.2) g/dL Albumin (3.5-5.0) g/dL Globulin (1.7-4.1) g/dL Albumin/Globulin Ratio (1.0-2.8) Urine Color Urine Appearance Urine pH (4.5-8.0) Ur Specific [place] (1.000-1.035) Urine Protein (Negative) Urine Glucose (UA) (Negative) g/dL Urine Ketones (NEGATIVE) Urine Occult Blood (Negative) Urine Nitrate (Negative) Urine Bilirubin (NEGATIVE) Urine Urobilinogen (0.2) E.U./dL Ur Leukocyte Esterase (NEGATIVE) Urine RBC (0-5/HPF) Urine WBC (0-5/HPF) Ur Squamous Epith Cells (0-5/HPF) Urine Bacteria (None) Urine Mucus (Negative) Urine Yeast (None) Ur Culture Indicated? Vol Urine Centrifuged Ur Random Sodium (30-90) mmol/L Urine Creatinine mg/dL Point of Care Testing Glucose POC 262 ECG Data Attestation: I personally reviewed and interpreted this ECG as follows: Interpretation: Sinus rhythm Ventricular rate is 74 Normal axis Normal QRS No ST T wave changes Repeat EKG Sinus tachycardia Ventricular rate 124 Normal QRS Normal QTC No ST T wave changes MDM Narrative Medical decision making narrative: patient presenting for abnormal labs incidentally found while undergoing lab work for Dermatology condition. Patient was not know his baseline hemoglobin, but does have known IgA nephropathy and is followed by Nephrology, however his normal doctor is in [place]. EKG shows slight peaked T-waves. repeat laboratory work shows even worsening of hyperkalemia with potassium 7.7. Albuterol, insulin, Kayexalate, calcium chloride ordered for stabilization and shift of potassium. Patient and significant other at bedside informed of abnormal labs as well as likely necessity of transfer for dialysis. Care of patient is signed over to Dr. Brito at [address] brito: Received turned over. Review patient's history and physical and workup up to this point. Patient has a history of rheumatoid arthritis and IgA nephropathy. Is being followed by Nephrology in [facility]. He states that he does have a history of kidney disease. He does not know what his baseline creatinine is. He stated that his strategy planning consultant has never mentioned that he was needed dialysis in the past. Had labs drawn as an outpatient by Dermatology after seeing Dermatology because of a rash. He stated that he received a call stating that he should come to the emergency department. Here in the ER he is hyperkalemic without EKG changes consistent with this. He would received Kayexalate, insulin and albuterol to help with the hyperkalemia. He tolerated this well however did become somewhat tachycardic after the albuterol. He does report that he has been fairly fatigued for the past week. He was still producing urine. Tolerating oral intake. His FeNa is consistent with an intrinsic renal failure. I did discuss the case with on-call nephrology at [facility] who recommended a bicarb drip. This was started here in the ER. Unfortunately [facility] does not have dialysis capability after 2200 hours. I then discussed the case with hospitalist on-call at [facility]. There was concern about his potassium level for the patient going to the [facility] floor. After treatment and repeat of his hyperkalemia his potassium did improve. I discussed again with on-call hospitalist who asked that I discuss the case with the ICU. I then discuss the case with the car unloader helper on-call [facility] who accepted the patient to the ICU. Patient did become somewhat hyperglycemic most likely from the bicarb drip which was in D5. He was administered more albuterol and insulin. His potassium continues to improve in his now down to 5.2. Patient is stable for transport. Critical Care Time <Ashu Brito, - Last Filed: 12/24/23 02:15> Critical Care Time Critical Care Time: Yes Total Critical Care Time: 45 Attestation: The high probability of a clinically significant, sudden or life threatening deterioration of the [renal, cardiovascular] system(s) required my full and direct attention, intervention and personal management. The aggregate critical care time was [45] minutes. This time is in addition to time spent performing reported procedures but includes the following: [x] Data Review and interpretation [x] Patient assessment and monitoring of vital signs [x] Documentation [x] Medication orders and management Discharge Plan Departure Patient Disposition: [facility] Clinical Impression: Acute renal failure, Hyperkalemia, IgA nephropathy, Rheumatoid arthritis Prescriptions: No Action prednisone 50 mg tablet 50 mg PO DAILY Qty: 5 0RF Referrals: Miscellaneous,Doctor, [Primary Care Provider] -
[2023-12-23] MEDS: ALBUTEROL 2.5 MG/3 ML NEB (ADULT) INH (18:06)
[2023-12-23] MEDS: SODIUM BICARB 8.4% VIAL 150 MEQ in DEXTROSE 5% WATER 1,000 ML IV (19:33)
[2023-12-23 19:40] LABS: Appearance Urine UA CLEAR; Bilirubin Urine UA NEGATIVE (NEGATIVE); Color Urine UA YELLOW; Glucose Urine UA TRACE g/dL (Negative); Ketones Urine UA NEGATIVE (NEGATIVE); Leukocyte Esterase Urine UA NEGATIVE (NEGATIVE); Nitrite Urine UA NEGATIVE (Negative); Occult Blood Urine UA 3+ (Negative); Protein Urine UA 2+ (Negative); Urobilinogen Urine UA 0.2 E.U./dL (0.2); pH Urine UA 5.5 (4.5-8.0)
[2023-12-23 19:42] LABS: Urine Volume 10mL (spun)
[2023-12-23 19:47] LABS: Bacteria Urine Few (2-10); Culture Indicated Urine Cult Not Indicated; Mucus Urine 1+ (Negative); RBC Urine 10-30/HPF (0-5/HPF); Squamous Epithelial Cell Urine None Seen (0-5/HPF); WBC Urine 0-1/HPF (0-5/HPF)
[2023-12-23 19:52] LABS: Creatinine Urine Random 82.41 mg/dL; Sodium Urine Random 35 mmol/L (30-90)
[2023-12-23 20:22] LABS: BUN Creatinine Ratio 10.8 (6-22); Blood Urea Nitrogen 87 mg/dL (9-20); Calcium 9.1 mg/dL (8.4-10.2); Carbon Dioxide 12 mmol/L (22-32); Chloride 109 mmol/L (98-107); Estimated Glomerular Filt Rate 7 mL/min (>60); Glucose 224 mg/dL (70-100); Sodium 135 mmol/L (137-145)
[2023-12-23 20:23] LABS: HEMOLYSIS < 15 (0-50)
[2023-12-23] MEDS: ALBUTEROL 2.5 MG/3 ML NEB (ADULT) 5 MG INH (21:50)
--- NOTE | 2023-12-23 22:26 | EKG_ITS ---
[id number] [address] [address] Test Date: 2023-12-23 Pat Name: Carlos Porter Department: Room: Gender: Male Service Learning Coordinator: DEIRDRE : 1965 Requested By: Order Number: [id number] Reading MD: Jamari Reece Measurements Intervals [place] Rate: 124 P: 45 DE: 152 QRS: 14 QRSD: 86 T: 21 QT: 304 QTc: 436 Interpretive Statements Sinus tachycardia Electronically Signed On 12-27-2023 8:40:46 PDT by Jamari Reece
--- NOTE | 2023-12-23 22:38 | PC.NURSE ---
updated Macrina: warehouse manager Gadiel Cailx
--- NOTE | 2023-12-23 23:50 | PC.NURSE ---
Pt ambulated independently to bathroom. Repositioned pt in bed with new warm blankets and turned lights down low.
[2023-12-24] VITALS: BP 141/59; PULSE 114; RESP 17; O2SAT 97
[2023-12-24 00:30] VITALS: BP 126/67; PULSE 112; RESP 18; O2SAT 97
[2023-12-24 01:00] VITALS: BP 120/66; PULSE 110; RESP 17; O2SAT 96
[2023-12-24 01:30] VITALS: BP 154/74; PULSE 113; RESP 24; O2SAT 98
[2023-12-24 02:00] VITALS: BP 134/71; PULSE 106; RESP 15; O2SAT 97
[2023-12-24 02:00] LABS: BUN Creatinine Ratio 11.2 (6-22); Blood Urea Nitrogen 93 mg/dL (9-20); Calcium 8.7 mg/dL (8.4-10.2); Carbon Dioxide 15 mmol/L (22-32); Chloride 106 mmol/L (98-107); Estimated Glomerular Filt Rate 7 mL/min (>60); Glucose 250 mg/dL (70-100); HEMOLYSIS < 15 (0-50); Potassium 5.2 mmol/L (3.4-5.1); Sodium 136 mmol/L (137-145)
[2023-12-24 02:30] VITALS: BP 159/87; PULSE 103; RESP 16; O2SAT 96
== END 2023-12-24 03:10 | disposition short-term general hospital (02) ==
PROVIDERS: Emergency Medicine; Emergency Provider Emergency Medicine
DX: N17.9 Acute kidney failure, unspecified (principal); E87.5 Hyperkalemia; N02.B1 Recurrent and persistent immunoglobulin A nephropathy with glomerular lesion; M06.9 Rheumatoid arthritis, unspecified; R00.0 Tachycardia, unspecified; R21 Rash and other nonspecific skin eruption; L57.8 Other skin changes due to chronic exposure to nonionizing radiation; L57.3 Poikiloderma of Civatte; X32.XXXA Exposure to sunlight, initial encounter
CPT/HCPCS: 36415; 80048; 80053; 81001; 82570; 82805; 82962; 83605; 83735; 84100; 84300; 85025; 85651; 86140; 93005; 94640; 96361; 96374; 96376; 99284; 99291; J7613